=== PATIENT | male | born 1955 | race Caucasian/White ===

== ENCOUNTER 2017-01-24 19:48 | Observation (INO) | payer SELFPAY ==
[2017-01-24] MEDS ORDERED: IOPAMIDOL (ISOVUE 370) 100 ML BTL IV ONE (20:03)
--- NOTE | 2017-01-24 20:09 | EDPHY ---
H & P Stated Complaint: c/o difficulty speaking/RUE weakness starting approx 0500 today Time Seen by Provider: 01/24/17 20:05 HPI/ROS: CHIEF COMPLAINT: Hand weakness, word-finding difficulty HISTORY OF PRESENT ILLNESS: The patient is a 61 y/o male arriving in triage complaining of weakness in his right hand onset this morning and continuing word finding difficulty. He noticed the hand weakness upon waking around 05:00, about 15 hours ago. He got out of bed, noted the weakness in his hand. Walked to the BR, and fell onto a pillow upon walking back. Hand weakness resolved by the time he went back to sleep. His sister came to his home tonight and noticed his speech was abnormal and brought him to the ED. The weakness resolved , but his speech difficulty persisted. History is limited by expressive aphasia. He denies headache. Denies stroke history or alcoholism. REVIEW OF SYSTEMS: Limited by speech difficulty. - Medical/Surgical History PMH: Implanted defibrillator and MD. Left-handed. Hx Asthma: No Hx Chronic Respiratory Disease: No Hx Diabetes: No Hx Cardiac Disease: No Hx Renal Disease: No Hx Cirrhosis: No Hx Alcoholism: No Hx HIV/AIDS: No Hx Splenectomy or Spleen Trauma: No - Social History Smoking Status: Current every day smoker Additional Social History: Smoker. Sister at bedside. Lives in [place]. - Physical Exam Exam: General Appearance: Alert, no respiratory distress Eyes: Pupils equal and round, no conjunctival pallor or injection ENT, Mouth: Mucous membranes moist Neck: Normal inspection Respiratory: Lungs are clear to auscultation Cardiovascular: Regular rate and rhythm Gastrointestinal: Abdomen is soft and non- tender Neurological: Alert, expressive aphasia, able to follow most commands cranial nerves II through XII intact, motor 5/5, sensory intact to light touch Skin: Warm and dry, no rash Extremities: Nontender, no pedal edema Psychiatric: Mood and affect normal Constitutional: Initial Vital Signs Temperature (C) 36.3 C 01/24/17 19:53 Heart Rate 85 01/24/17 19:53 Respiratory Rate 18 01/24/17 19:53 Blood Pressure 161/89 H 01/24/17 19:53 O2 Sat (%) 96 01/24/17 19:53 O2 Delivery Mode Room Air Allergies/Adverse Reactions: No Known Allergies Allergy (Unverified 01/24/17 20:02) Home Medications: Medication Instructions Recorded NK [No Known Home Meds] 01/24/17 Medical Decision Making - Diagnostics EKG Interpretation: EKG interpreted by me reveals normal sinus rhythm, rate 89, PVC, incomplete right bundle branch block. Imaging Results: Imaging Impressions Chest X-Ray 01/24/17 20:01 Impression: Pacemaker. Poor inspiratory depth. Head CT 01/24/17 20:01 Impression: Normal. I telephoned results to Dr. Lynne Church at 2029 hours. Head CTA 01/24/17 20:29 Impression: 1. No arterial obstruction. 2. Chronic multilevel cervical spinal stenosis, worst at C4-C5. Note: Arterial stenoses are estimated using NASCET Criteria. I telephoned results to Dr. Lynne Church at 2104 hours. Neck CTA 01/24/17 20:29 Impression: 1. No arterial obstruction. 2. Chronic multilevel cervical spinal stenosis, worst at C4-C5. Note: Arterial stenoses are estimated using NASCET Criteria. I telephoned results to Dr. Lynne Church at [address]-A head/neck ready by Dr. Allan: normal Imaging: Discussed imaging studies w/ call manager Radiologist, I viewed and interpreted images myself ED Course/Re-evaluation: This is a 61 y/o male with cardiac disease history and AICD who presents with dysphasia of unknown onset and resolved right hand weakness. History is limited by patient's dysphasia and informed by his sister's retelling of unwitnessed events today. His neuro exam is normal apart from ongoing dysphasia. He is able to converse somewhat and seems to understand most commands. IVs established, labs drawn, patient placed on bus driver/monitor. Patient will be sent directly to CT to for noncontrast head CT to rule out acute hemorrhage. The pt's sister arrived in the room and describes the following timeline. The patient woke up around 05:00 and walked to the bathroom. He noticed his right hand felt weak. As he was walking back to his bed he fell and landed on some pillows; he denied head strike or injury from this to his sister. He went back to sleep until 11:00. Around that time he woke up and completed crosswords and watched TV without further weakness. He did not notice any speech difficulty at that time. His sister arrived at his home around 19:15, 2 hours ago, and noticed aphasia and brought him to the ED. She also explains he has an implanted defibrillator and had an MD. She does not think he is on any medication. No anticoagulants per patient's sister. 2024: Consulted with Dr. Lisa, [facility]. He agrees patient is not a TPA candidate due to unknown time of onset. If CT is negative, we will proceed with CTA of his head and neck. If large thrombosis is present, plan to reconsult with neurologist. Repeat neuro exam unchanged. 2028: Noncontrast Head CT is negative per Dr. Allan, radiology. 2103: CTAs are negative per Dr. Allan. 300mg [place] Aspirin administered. Troponin slightly elevated at 0.048. Chest x-ray negative. He denies chest pain. EKG reveals reveals no evidence of ischemia. Neuro exam unchanged. Spoke with hospitalist service. Dr. Manley accepts admission for CVA. Critical care time spent by me, Dr. Church, exclusively with this patient was 35 minutes, exclusive of PA time and exclusive of procedures. The organ system at risk was brain. Time spent in serial assessments of the patient, discussion with patient's family, consideration of TPA, neurology consultation, and review of CT scans. Differential Diagnosis: Altered mental status including but not limited to hypoglycemia, infectious process, electrolyte abnormality, head injury and intoxicants. - Data Points Laboratory Results: Laboratory Results 01/24/17 20:15 01/24/17 20:15 01/24/17 01/24/17 01/24/17 20:15 20:15 20:15 WBC 9.93 10^3/uL H 10^3/uL (3.80-9.50) RBC 5.61 10^6/uL 10^6/uL (4.40-6.38) Hgb 17.6 g/dL H g/dL (13.7-17.5) POC Hgb Hct 51.1 % H % (40.0-51.0) POC Hct MCV 91.1 fL fL (81.5-99.8) MCH 31.4 pg pg (27.9-34.1) MCHC 34.4 g/dL g/dL (32.4-36.7) RDW 13.2 % % (11.5-15.2) Plt Count 296 10^3/uL 10^3/uL (150-400) MPV 9.0 fL fL (8.7-11.7) Neut % (Auto) 68.8 % % (39.3-74.2) Lymph % (Auto) 18.7 % % (15.0-45.0) [place] % (Auto) 10.2 % % (4.5-13.0) Eos % (Auto) 1.4 % % (0.6-7.6) Baso % (Auto) 0.7 % % (0.3-1.7) Nucleat RBC Rel Count 0.0 % % (0.0-0.2) Absolute Neuts (auto) 6.83 10^3/uL H 10^3/uL (1.70-6.50) Absolute Lymphs (auto) 1.86 10^3/uL 10^3/uL (1.00-3.00) Absolute Monos (auto) 1.01 10^3/uL H 10^3/uL (0.30-0.80) Absolute Eos (auto) 0.14 10^3/uL 10^3/uL (0.03-0.40) Absolute Basos (auto) 0.07 10^3/uL 10^3/uL (0.02-0.10) Absolute Nucleated RBC 0.00 10^3/uL 10^3/uL (0-0.01) Immature Gran % 0.2 % % (0.0-1.1) Immature Gran # 0.02 10^3/uL 10^3/uL (0.00-0.10) PT 13.5 SEC SEC (12.0-15.0) INR 1.01 (0.83-1.16) APTT 29.4 SEC SEC (23.0-38.0) POC Sodium Sodium 143 mEq/L mEq/L (134-144) POC Potassium Potassium 3.9 mEq/L mEq/L (3.5-5.2) POC Chloride Chloride 102 mEq/L mEq/L (97-110) Carbon Dioxide 25 mEq/l mEq/l (22-31) Anion Gap 16 mEq/L mEq/L (8-16) POC BUN BUN 15 mg/dL mg/dL (7-23) Creatinine 1.0 mg/dL mg/dL (0.7-1.3) POC Creatinine Estimated GFR > 60 Glucose 104 mg/dL H mg/dL (70-100) POC Glucose Calcium 9.5 mg/dL mg/dL (8.5-10.4) Troponin I 0.048 ng/mL H ng/mL (0.000-0.034) 01/24/17 20:09 WBC RBC Hgb POC Hgb 18.0 gm/dL H gm/dL (13.7-17.5) Hct POC Hct 53 % H % (40-51) MCV MCH MCHC RDW Plt Count MPV Neut % (Auto) Lymph % (Auto) [place] % (Auto) Eos % (Auto) Baso % (Auto) Nucleat RBC Rel Count Absolute Neuts (auto) Absolute Lymphs (auto) Absolute Monos (auto) Absolute Eos (auto) Absolute Basos (auto) Absolute Nucleated RBC Immature Gran % Immature Gran # PT INR APTT POC Sodium 143 mEq/L mEq/L (134-144) Sodium POC Potassium 4.0 mEq/L mEq/L (3.3-5.0) Potassium POC Chloride 105 mEq/L mEq/L (97-110) Chloride Carbon Dioxide Anion Gap POC BUN 16 mg/dL mg/dL (7-23) BUN Creatinine POC Creatinine 1.0 mg/dL mg/dL (0.7-1.3) Estimated GFR Glucose POC Glucose 103 mg/dL H mg/dL (70-100) Calcium Troponin I Medications Given: Discontinued Medications Aspirin (Aspirin) 325 mg PO EDNOW ONE Stop: 01/24/17 21:05 Last Admin: 01/24/17 21:33 Dose: Not Given Aspirin (Aspirin Rectal) 300 mg WI EDNOW ONE Stop: 01/24/17 21:16 Last Admin: 01/24/17 21:26 Dose: 300 mg Point of Care Test Results: 01/24/17 20:09 POC Sodium 143 POC Potassium 4.0 POC Chloride 105 POC BUN 16 POC Creatinine 1.0 POC Glucose 103 H Departure - Departure Disposition: [facility] Inpatient Acute Clinical Impression: Expressive aphasia Stroke Qualifiers: CVA mechanism: other Qualified Code(s): I63.8 - Other cerebral infarction Condition: Fair Report Scribed for: Lynne Church Report Scribed by: Anais Pulido Date of Report: 01/24/17 Time of Report: 20:59 Physician Review and Approval Statement: 01/24/17 21:02 Portions of this note were transcribed by a medical illustrator. I personally performed a history, physical exam, medical decision making, and confirmed accuracy of information the transcribed note.
--- NOTE | 2017-01-24 20:19 | CPEKG ---
Heart Rate: 89 RR Interval: 674 P-R Interval: 200 QRSD Interval: 114 QT Interval: 404 QTC Interval: 492 P [place]: 53 QRS [place]: -2 T Wave [place]: 35 EKG Severity - ABNORMAL ECG - EKG Impression: SINUS RHYTHM EKG Impression: VENTRICULAR PREMATURE COMPLEX EKG Impression: PROBABLE LEFT ATRIAL ABNORMALITY EKG Impression: INCOMPLETE RBBB AND LAFB Electronically Signed By: Lynne Church 24-Jan-2017 22:06:41
[2017-01-24 20:20] LABS: % IMMATURE GRANULYOCYTES 0.2 % (0.0-1.1); ABSOLUTE IMMATURE GRANULOCYTES 0.02 10^3/uL (0.00-0.10); ADD DIFF? NO; ADD MORPH? NO; ADD SCAN? NO; ATYPICAL LYMPHOCYTE FLAG 10 (0-99); FRAGMENT RBC FLAG 0 (0-99); HEMATOCRIT 51.1 % (40.0-51.0); HEMOGLOBIN 17.6 g/dL (13.7-17.5); LEFT SHIFT FLG 0 (0-99); LIPEMIA HEMOLYSIS FLAG 90 (0-99); MEAN CELL HEMOGLOBIN 31.4 pg (27.9-34.1); MEAN CELL HEMOGLOBIN CONCENTR. 34.4 g/dL (32.4-36.7); MEAN CELL VOLUME 91.1 fL (81.5-99.8); PLATELET CLUMPS FLAG 0 (0-99); PLATELET COUNT 296 10^3/uL (150-400); RED BLOOD CELL COUNT 5.61 10^6/uL (4.40-6.38); RED CELL DISTRIBUTION WIDTH 13.2 % (11.5-15.2)
[2017-01-24 20:29] LABS: INR 1.01 (0.83-1.16); PROTIME(PATIENT) 13.5 SEC (12.0-15.0)
[2017-01-24 20:30] LABS: APTT 29.4 SEC (23.0-38.0)
[2017-01-24 20:38] LABS: ANION GAP 16 mEq/L (8-16); CALCIUM 9.5 mg/dL (8.5-10.4); CARBON DIOXIDE 25 mEq/l (22-31); CHLORIDE 102 mEq/L (97-110); GLOMERULAR FILTRATION RATE > 60; GLUCOSE 104 mg/dL (70-100); POTASSIUM 3.9 mEq/L (3.5-5.2); SODIUM 143 mEq/L (134-144)
[2017-01-24 20:54] LABS: TROPONIN I 0.048 ng/mL (0.000-0.034)
[2017-01-24] MEDS ORDERED: ASPIRIN 325 MG TAB PO ONE (21:04)
[2017-01-24] MEDS ORDERED: ASPIRIN RECTAL 300 MG SUPP PR ONE ×2 (21:13→21:15)
[2017-01-24] MEDS ORDERED: ONDANSETRON 4 MG/2 ML VIAL IVP PRN (22:38)
[2017-01-24] MEDS ORDERED: diphenhydrAMINE 25 MG CAP PO PRN (22:38)
[2017-01-24] MEDS ORDERED: ACETAMINOPHEN 325 MG TAB PO PRN (22:38)
[2017-01-24] MEDS ORDERED: LABETALOL HCL 5 MG/ML 20 ML MDV IVP PRN (22:41)
[2017-01-24] MEDS ORDERED: NS 1,000 ML IV SCH (22:45)
--- NOTE | 2017-01-24 23:54 | PDGENHP ---
History and Physical - Chief Complaint right arm weakness, word finding difficulties - History of Present Illness Source - patient able to provide majority of the history. Continues to have some word finding difficulties. History is also supplemented by patient sister at bedside. EMR reviewed and case discussed with accepting provider. HPI - Pleasant 61 yo M with pmhx significant for CAD 1998 with history of vtach/ vfib s/p AICD who presents to the ED this evening with complaints of aphasia and resolved right arm weakness. Patient reports he woke up approximately 0500 this AM with need to void. When he went to go sit up his right arm lay limp beside him and he had to move it with his left arm. Over the course of a few minutes patient states his right arm movement began to return. He denies any associated headache, changes in vision, numbness/tingling in other limbs or other focal weakness. Patient denies any noted facial drooping. As patient was walking out of the bathroom he reports he slipped and fell on the floor. when asked to clarify how he fell patient is unable to described but he denies any head injury or loss of consciousness. Patient states he subsequently went back to bed to sleep for a few hours and when he awoke he no longer had any right arm weakness/heaviness. Patient lives with his sister however she did not see the patient in the morning. Patient reports that he had no issues going about his day he denies any other focal deficits. He states he watched TV and had no issues understanding speech. He was able to complete a cross word puzzle approx 1pm. Patient sister returned home approximately 630 but did not see the patient upstairs until approximately 715. Patient reports he did not have any verbal interaction with anyone until his sister returned home. Patient was able to say hello and over a few minutes had increasing word finding difficulties. Patient even tried to use written communication but had similar issues with word finding and forming complete sentences. after approximately 15 minutes patient sister brought him into the ER for evaluation. No noted facial drooping or drooling. Patient denies any associated chest pain, palpitations, shortness of breath, changes in vision or other focal deficits since onset of word finding difficulties. Patient received Aspirin in the ED. CT/CTA head/neck negative for acute findings and nonocclusive vascular disease. Since arrival to the neuro floor patient and his sister reports that although aphasia persists it has improved significantly. History Information - Allergies/Home Medication List Allergies/Adverse Reactions: No Known Allergies Allergy (Unverified 01/24/17 20:02) Home Medications: NK [No Known Home Meds] 01/24/17 [Last Taken Unknown] I have personally reviewed and updated: family history, medical history, social history, surgical history - Past Medical History Additional medical history: CAD s/p PCI with stent x 2 1998. vtach/vfib s/p ICD with revisions - 1998, 2004, 2009, 2012. HLD. tobaco dependence - Surgical History Additional surgical history: cardiac cath/PCI/stents 1998. AICD with revisions 1998, 2004, 2009, 2012 - Family History Additional family history: father - cancer. mother CAD - age 54. mgf - CAD with mi 50s, CVA 70s. brother - CAD/NH age 54. aunt with history of CVA 70s - Social History Smoking Status: Current every day smoker Tobacco Use: Cigarettes (up to 1/4 ppd) Alcohol Use: None Drug Use: None Additional social history: Recently moved from [place] to [place]. Lives with sister. COR - FULL. patient desires sister Marcy or son Chintan to act as proxy. Review of Systems Review of Systems: ROS: 10pt was reviewed & negative except for what was stated in HPI & below Constitutional: Reports: no symptoms EENMT: Reports: no symptoms. Denies: blurred vision, double vision, eye pain, sore throat Cardiac: Reports: no symptoms, lightheadedness. Denies: chest pain, edema, palpitations, syncope Respiratory: Reports: no symptoms. Denies: cough, shortness of breath Gastrointestinal: Reports: no symptoms. Denies: vomitting, diarrhea, nausea Genitourinary: Reports: no symptoms. Denies: burning, dysuria, hematuria Muscolosketal: Reports: other (right arm weakness as per hpi. ). Denies: joint pain, muscle pain Skin: Reports: no symptoms. Denies: rash Neurological: Reports: weakness (right arm). Denies: anxiety, headache, tingling, tremors Physical Exam Physical Exam: Selected Entries 01/24/17 19:53 Heart Rate 85 Respiratory 18 Rate O2 Sat (%) 96 Temperature (C) 36.3 C Blood Pressure 161/89 H Mean Arterial 113 H Pressure (MAP) O2 Delivery Room Air Mode Temperature Oral Source Temp Pulse Resp BP Pulse Ox 36.3 C 76 20 132/91 H 94 01/24/17 22:16 01/24/17 22:16 01/24/17 22:16 01/24/17 22:16 01/24/17 22:16 Constitutional: no apparent distress, not in pain Eyes: PERRL, anicteric sclera, EOMI, No scleral injection Ears, Nose, Mouth, Throat: dry mucous membranes, No oral ulcer Cardiovascular: regular rate and rhythym, no murmur, rub, or gallop, No systolic murmur, No edema Peripheral Pulses: 1+: dorsalis-pedis (R), dorsalis-pedis (L) Respiratory: no respiratory distress, no rales or rhonchi, clear to auscultation Gastrointestinal: normoactive bowel sounds, soft, non-tender abdomen, no palpable masses, No tenderness Genitourinary: no bladder tenderness, No stoddard in urethra Skin: warm, normal color, No rash Musculoskeletal: full muscle strength, No joint tenderness, No muscular tenderness Neurologic: AAOx3, sensation intact bilaterally, CN II-XII Intact, No weakness, No pronator drift, No facial droop Psychiatric: interacting appropriately, not anxious, not encephalopathic, thought process linear, other (patient with some word finding difficulties but becomes occasionally frustrated when he is unable to formulate sentences and recognizes this. ) Lab Data & Imaging Review 01/25/17 04:10 01/25/17 04:10 WBC 9.93 10^3/uL (3.80-9.50) H 01/24/17 20:15 RBC 5.61 10^6/uL (4.40-6.38) 01/24/17 20:15 Hgb 17.6 g/dL (13.7-17.5) H 01/24/17 20:15 POC Hgb 18.0 gm/dL (13.7-17.5) H 01/24/17 20:09 Hct 51.1 % (40.0-51.0) H 01/24/17 20:15 POC Hct 53 % (40-51) H 01/24/17 20:09 MCV 91.1 fL (81.5-99.8) 01/24/17 20:15 MCH 31.4 pg (27.9-34.1) 01/24/17 20:15 MCHC 34.4 g/dL (32.4-36.7) 01/24/17 20:15 RDW 13.2 % (11.5-15.2) 01/24/17 20:15 Plt Count 296 10^3/uL (150-400) 01/24/17 20:15 MPV 9.0 fL (8.7-11.7) 01/24/17 20:15 Neut % (Auto) 68.8 % (39.3-74.2) 01/24/17 20:15 Lymph % (Auto) 18.7 % (15.0-45.0) 01/24/17 20:15 [place] % (Auto) 10.2 % (4.5-13.0) 01/24/17 20:15 Eos % (Auto) 1.4 % (0.6-7.6) 01/24/17 20:15 Baso % (Auto) 0.7 % (0.3-1.7) 01/24/17 20:15 Nucleat RBC Rel Count 0.0 % (0.0-0.2) 01/24/17 20:15 Absolute Neuts (auto) 6.83 10^3/uL (1.70-6.50) H 01/24/17 20:15 Absolute Lymphs (auto) 1.86 10^3/uL (1.00-3.00) 01/24/17 20:15 Absolute Monos (auto) 1.01 10^3/uL (0.30-0.80) H 01/24/17 20:15 Absolute Eos (auto) 0.14 10^3/uL (0.03-0.40) 01/24/17 20:15 Absolute Basos (auto) 0.07 10^3/uL (0.02-0.10) 01/24/17 20:15 Absolute Nucleated RBC 0.00 10^3/uL (0-0.01) 01/24/17 20:15 Immature Gran % 0.2 % (0.0-1.1) 01/24/17 20:15 Immature Gran # 0.02 10^3/uL (0.00-0.10) 01/24/17 20:15 PT 13.5 SEC (12.0-15.0) 01/24/17 20:15 INR 1.01 (0.83-1.16) 01/24/17 20:15 APTT 29.4 SEC (23.0-38.0) 01/24/17 20:15 POC Sodium 143 mEq/L (134-144) 01/24/17 20:09 Sodium 143 mEq/L (134-144) 01/24/17 20:15 POC Potassium 4.0 mEq/L (3.3-5.0) 01/24/17 20:09 Potassium 3.9 mEq/L (3.5-5.2) 01/24/17 20:15 POC Chloride 105 mEq/L (97-110) 01/24/17 20:09 Chloride 102 mEq/L (97-110) 01/24/17 20:15 Carbon Dioxide 25 mEq/l (22-31) 01/24/17 20:15 Anion Gap 16 mEq/L (8-16) 01/24/17 20:15 POC BUN 16 mg/dL (7-23) 01/24/17 20:09 BUN 15 mg/dL (7-23) 01/24/17 20:15 Creatinine 1.0 mg/dL (0.7-1.3) 01/24/17 20:15 POC Creatinine 1.0 mg/dL (0.7-1.3) 01/24/17 20:09 Estimated GFR > 60 01/24/17 20:15 Glucose 104 mg/dL (70-100) H 01/24/17 20:15 POC Glucose 103 mg/dL (70-100) H 01/24/17 20:09 Calcium 9.5 mg/dL (8.5-10.4) 01/24/17 20:15 Troponin I 0.048 ng/mL (0.000-0.034) H 01/24/17 20:15 Assessment & Plan Assessment: 61 yo M with pmx significant for CAD, HLD not currently on any therapy s/p PCI with stent x 2 and ICD for history of vtach/vfib presents with right arm weakness resolved 14 hours prior to arrival and up to 6 or 7 hours of expressive aphasia. 1. Expressive aphasia (Acute) - symptoms slightly improved with still with some word finding difficulties. stroke protocol in place. PT/OT/ST consulted as well as neurology. Will evaluate if patient ICD is compatible with MRI and order for AM if so. CT/CTA negative for acute findings or severe occlusive disease. s/ p ASA. check a1c, lipid profile. echo with bubble in AM. patient has been off treatment for some time as he reports he did not feel well on therapy for CAD. 2. Stroke (Acute) - as above. 3. right arm weakness - resolved. 4. CAD - check lipid profile. daily ASA. 5. elevated trop - minimally elevated above normal limits. denies chest pain. repeat in AM. hydrate. hx of vtach/vfib - s/p ICD. monitor on remote tele. 6. tobacco dependence - immediate cessation advised. 7. polycythemia - hydrate and repeat cbc in AM. further testing if no resolution. FEN - IVF overnight while npo. electrolyte replacement prn. diet cardiac after bedside swallow evaluation. PPX - SCDs. lovenox ppx. COR - FULL. sister Marcy or son Chintan to be proxy if needed. Dispo - admit to observation pending further evaluation and neurology recommendations. Consult entered for neurology in AM.
[2017-01-25 05:22] LABS: % IMMATURE GRANULYOCYTES 0.3 % (0.0-1.1); ABSOLUTE IMMATURE GRANULOCYTES 0.02 10^3/uL (0.00-0.10); ADD DIFF? NO; ADD MORPH? NO; ADD SCAN? NO; ATYPICAL LYMPHOCYTE FLAG 20 (0-99); FRAGMENT RBC FLAG 0 (0-99); HEMATOCRIT 46.6 % (40.0-51.0); HEMOGLOBIN 15.8 g/dL (13.7-17.5); LEFT SHIFT FLG 0 (0-99); LIPEMIA HEMOLYSIS FLAG 90 (0-99); MEAN CELL HEMOGLOBIN 30.8 pg (27.9-34.1); MEAN CELL HEMOGLOBIN CONCENTR. 33.9 g/dL (32.4-36.7); MEAN CELL VOLUME 90.8 fL (81.5-99.8); MEAN PLATELET VOLUME 9.4 fL (8.7-11.7); PLATELET CLUMPS FLAG 0 (0-99); PLATELET COUNT 251 10^3/uL (150-400); RED BLOOD CELL COUNT 5.13 10^6/uL (4.40-6.38); RED CELL DISTRIBUTION WIDTH 13.2 % (11.5-15.2)
[2017-01-25 05:27] LABS: ANION GAP 11 mEq/L (8-16); CALCIUM 8.6 mg/dL (8.5-10.4); CARBON DIOXIDE 23 mEq/l (22-31); CHLORIDE 107 mEq/L (97-110); CHOLESTEROL 161 mg/dL (140-220); CHOLESTEROL/HDL RATIO 5.55 RATIO (1.00-4.97); CREATININE 0.8 mg/dL (0.7-1.3); GLOMERULAR FILTRATION RATE > 60; GLUCOSE 78 mg/dL (70-100); HIGH DENSITY LIPOPROTEIN 29 mg/dL (40-65); LDL/HDL RATIO 3.62 RATIO (1.00-3.64); LOW DENSITY LIPOPROTEIN 105 mg/dL (80-100); NON-HIGH DENSITY LIPOPROTEIN 132 mg/dL (90-129); POTASSIUM 3.9 mEq/L (3.5-5.2); SODIUM 141 mEq/L (134-144); TRIGLYCERIDE 137 mg/dL (40-150); VERY LOW DENSITY LIPOPROTEINS 27 mg/dL (8-25)
[2017-01-25 05:35] LABS: TROPONIN I 0.055 ng/mL (0.000-0.034)
[2017-01-25] MEDS ORDERED: ENOXAPARIN 40 MG/0.4 ML SYR SC SCH (09:00)
[2017-01-25] MEDS ORDERED: ASPIRIN 81 MG CHEWABLE TAB PO SCH (09:00)
--- NOTE | 2017-01-25 10:03 | ECHO ---
[email or web address] [address] [address] Main: [phone] Fax: Transthoracic Echocardiogram Name: FLORIN LOPEZ MR#: [id number] Study Date: 01/25/2017 Study Time: 08:49 AM Date of : 1955 Age: 61 year(s) Height: 185.4 cm (73 in.) Weight: 97.52 kg (215 lb.) BSA: 2.22 m2 Gender: Male Examination: Echo Indication: Ischemic Stroke, ICD and Stents 1998 Image Quality: Contrast: Requested by: Elvira Khan BP: 124 mmHg/79 mmHg Heart Rate: Rhythm: Normal sinus rhythm with ectopy Indication: Ischemic Stroke, ICD and Stents 1998 Procedure Staff Mechanical Fitter: Gregory Rankin Reading Physician: Salvador Haney Requesting Provider: Conclusions: No pericardial effusion. Moderate reduction in ejection fraction. Evidence of prior inferior wall myocardial infarction. ICD in the right ventricle. Evidence of right to left shunting by bubble study. Aortic valve calcification without significant stenosis. Measurements: Chambers Valvular Assessment AV/MV Valvular Assessment TV/PV Normal Normal Normal Name Value Range Name Value Range Name Value Range Ao Liudmila (MM): 4.0 cm (2.2 cm-3.7 AV Vmax: 1.40 m/s (1 m/s-1.7 PV Vmax: 1.18 m/s (0.6 m/s-0.9 cm) m/s) m/s) IVSd (2D): 1.1 cm (0.6 cm-1.1 AV maxP mmHg ( - ) PV PGmax: 6 mmHg ( - ) cm) LVOT Vmax: 0.67 m/s (0.7 m/s-1.1 LVDd (2D): 6.5 cm (4.2 cm-5.9 m/s) cm) MV E Vmax: 0.60 m/s ( - ) LVDs (2D): 5.2 cm (2.1 cm-4 MV A Vmax: 1.05 m/s ( - ) cm) MV E/A: 0.57 ( - ) LVPWd (2D): 1.1 cm (0.6 cm-1 cm) LVEF (BP): 37 % (>=55 %) Continued Measurements: Chambers Valvular Assessment AV/MV Name Value Name Value LADs Lon.7 cm MV E' Septal: 0.03 m/s LA Area: 20.4 cm2 MV E/E' Septal: 19.30 LA Volume: 71 ml MV E/E' Lateral: 13.70 LA Volume Index: 32.0 ml/m2 Patient: FLORIN LOPEZ Study Date: 01/25/2017 Page 1 of 2 08:49 AM Findings: Left Ventricle: Mildly dilated left ventricle. Moderately reduced systolic LV function. EF is 37 %. There is basial to mid inferolateral hypokinesis. There is basilar to mid inferior hypokinesis.. Right Ventricle: Normal size right ventricle. Normal RV function. There is an ICD lead noted in the right ventricle. Left Atrium: The left atrium is normal in size. An agitated saline study was performed and was positive for intracardiac shunting. Right Atrium: The right atrium is normal in size. Mitral Valve: The mitral valve is normal in appearance. Trivial to mild mitral regurgitation. Aortic Valve: The aortic valve is tri-leaflet. Mild aortic cusp calcification is noted. No aortic valve stenosis is present. Tricuspid Valve: The tricuspid valve is normal in appearance and function. Pulmonic Valve: The pulmonic valve is normal in appearance and function. Aorta: The aorta is normal. Pericardium: No pericardial effusion. Exam Comments: .. (No Signature Object) Patient: FLORIN LOPEZ Study Date: 01/25/2017 Page 2 of 2 08:49 AM [id number]
[2017-01-25] MEDS ORDERED: ATORVASTATIN CALCIUM 40 MG TAB PO SCH (10:15)
[2017-01-25] MEDS ORDERED: NS 1,000 ML IV ONE (11:19)
--- NOTE | 2017-01-25 11:19 | PDHPUP ---
History & Physical Update H&P update statement: This history and physical update is based on an assessment of the patient which was completed after admission or registration (within 24 hours), but prior to the surgery/procedure. H&P update: H&P reviewed & patient examined, no change in patient's condition since H&P completed
--- NOTE | 2017-01-25 12:35 | ASMTCMCOM ---
CM Note CM Note Notes: Reviewed chart and discussed w/RN. Pt lives at home w/sister. Aphasia and other symptoms improving, will have ELSY today. No dc needs anticipated at this time. CM will follow for any changes/needs. Date Signed: 01/25/2017 12:34 PM Electronically Signed By:Winsome Eric RN
[2017-01-25 12:38] LABS: HEMOGLOBIN A1C 5.9 % (4.0-6.0)
--- NOTE | 2017-01-25 13:39 | PDANEPAE ---
ANE History of Present Illness 61 yo for samuel s/p cva ANE Past Medical History - Cardiovascular History Hx Hypertension: Yes Hx Arrhythmias: Yes Hx Chest Pain: Yes Hx Coronary Artery / Peripheral Vascular Disease: Yes - Pulmonary History Hx Oxygen in Use at Home: No Hx Sleep Apnea: No - Endocrine History Hx Diabetes: No - Chronic Pain History Chronic Pain: No ANE Review of Systems Review of Systems: - Exercise capacity METS (RN): 4 METS ANE Patient History - Allergies Allergies/Adverse Reactions: No Known Allergies Allergy (Unverified 01/24/17 20:02) - Home Medications Home medications: home medication list seen and reviewed Home Medications: NK [No Known Home Meds] 01/24/17 [Last Taken Unknown] - NPO status NPO Status: no food or drink >8 hours - Anes Hx Anes Hx: no prior problems - Smoking Hx Smoking Status: Current every day smoker - Alcohol Use Alcohol Use: None ANE Labs/Vital Signs - Labs Result Diagrams: 01/25/17 04:10 01/25/17 04:10 - Vital Signs Blood Pressure: 124/79 Heart Rate: 71 Respiratory Rate: 18 O2 Sat (%): 93 Height: 6 ft 0.61 in Weight: 93.8 kg ANE Physical Exam - Airway Neck exam: FROM Mallampati Score: Class 2 Mouth exam: normal dental/mouth exam - Pulmonary Pulmonary: no respiratory distress - Cardiovascular Cardiovascular: regular rate and rhythym - ASA Status ASA Status: III ANE Anesthesia Plan Anesthesia Plan: MAC
--- NOTE | 2017-01-25 14:00 | GCON ---
[f rep st] CONSULTATION REFERRING PHYSICIAN: Jessenia Manley MD HISTORY OF PRESENT ILLNESS: The patient is a 61-year-old gentleman whom I am asked to see in neurolo gi consultation with a chief complaint of trouble speaking. The history is obtained from review of the medical records, as well as in discussion with the patient who is a good historian, despite him h aving a very mild expressive language difficulty. He was doing well after having recently moved to [facility] from [place], when he awoke yesterday and noticed he was having trouble using his right arm . Over the course of a few hours, including going back to sleep, he had gradual improvement. At one point he wound up on the floor and was resting there for a little while, it sounds like. He was not trying to speak to anybody, so he really was not initially aware of a language disturbance. In fact , he was able to get dressed and do activities outside and it was not until the evening did he recogn ize when he was trying to speak that it was not right. He says he was also trying to specifically wr ite and had trouble doing that as well. That is when his sister had him come to the hospital for acu te evaluation. He was seen in the emergency department by Dr. Church. She consulted with Jed chavez, and he was not felt to be a candidate for t-PA because of the time frame and the very mild de ficit at the time. He underwent CT of the head that was unremarkable and then had a CT angiogram of the head and neck, which did not reveal any significant stenoses. He was subsequently admitted by Dr. Elvira Khan. The patient had not been taking regular aspirin. He did have aspirin in the past, as well as Plavix when he had coronary disease some 18 years ago and had ventricular tachycardia and has an AICD. However, he was only using aspirin for pain and not fo r any secondary prophylaxis of coronary disease. He says that this had been last changed in 2011, he believes with previous battery changes as well and does not have any current cardiac complaints. PAST MEDICAL HISTORY: As noted above with reports of ventricular tachycardia, ventricular fibrillati on, and a pacemaker, AICD, and prior stenting. He does smoke. FAMILY HISTORY: Cancer. There is a family history of stroke as well. SOCIAL HISTORY: He has about a quarter pack of cigarettes per day. No alcohol. He moved to [facility] a few months ago. He was in the [place] area. He is living with a sister. ALLERGIES: No known drug allergies. MEDICATIONS: He was not taking any home medication. He thinks he took statins in the past, but got off those as well and also previously had been on Niaspan. REVIEW OF SYSTEMS: Negative for fever, chills, nausea, vomiting, or diarrhea. No headaches. PHYSICAL EXAMINATION: VITAL SIGNS: Blood pressure 124/79, pulse of 71, respirations 18, temperature 36.9. GENERAL: He is well developed in no acute distress. EYES: Clear. NECK: Supple. No bruit s or masses. CARDIAC: Regular rate and rhythm. No murmur. NEUROLOGIC: He is alert and attentive, but has a mild expressive language difficulty. He is able to communicate effectively, however. Pup ils are 3 mm and reactive. No visual field loss. Extraocular movements are intact. Normal facial s ensation and strength. Palate elevates symmetrically. Tongue protrudes in the midline. Hearing is preserved. No weakness of head turning or shoulder shrug. Motor exam reveals normal muscle bulk and tone with 5/5 strength and no abnormal movements. Sensation is preserved for temperature and light touch. No ataxia on [id number]. His NIH Stroke Scale is 1 with mild expressive aphasia. ASSESSMENT AND PLAN: The patient has experienced a probable acute ischemic stroke starting yesterday morning and still has a very mild expressive aphasia. I do not think a repeat head CT is necessary to confirm the small stroke because it is so clinically evident that that is likely what has occurred . He is not a candidate for MRI because of his pacemaker device. He needs to be on antiplatelet the rapy, so we will continue daily aspirin. I am recommending he go on a statin for secondary stroke pr ophylaxis, and he agrees to that. He has had an echocardiogram obtained this morning. That study sh ows a moderate reduction in ejection fraction with some prior inferior wall abnormality consistent wi th old infarct. There is evidence of a [id number]-eqti shunt on the bubble study, and there are some a ortic valve calcifications without significant stenosis. The ejection fraction is about 37%. This w as read by Dr. Haney. The patient has also been evaluated with Dr. Megha Hickman. However, there is no detailed cardiology consultation I can ascertain so far. In reviewing the case management notes, there is a plan for him to have a ELSY later today. I am sure this was initiated through the cardiac consultation, and they will continue to be involved, and we need their input for guidance on appropr iate management of the significant cardiac disease that he does have. He also needs to establish wit h a primary care provider for general medical issues. He should follow up with me as an outpatient. Consideration will need to be given for possible closure of a PFO if appropriate. /[id number]/MODL
--- NOTE | 2017-01-25 14:12 | CPEKG ---
Heart Rate: 74 RR Interval: 811 P-R Interval: 208 QRSD Interval: 120 QT Interval: 448 QTC Interval: 497 P Cleveland: 56 QRS Cleveland: -51 T Wave Cleveland: 22 EKG Severity - ABNORMAL ECG - EKG Impression: SINUS RHYTHM EKG Impression: PROBABLE LEFT ATRIAL ABNORMALITY EKG Impression: NONSPECIFIC IVCD WITH LAD Electronically Signed By: Adelso Frias 26-Jan-2017 13:24:22
--- NOTE | 2017-01-25 14:14 | POSTANESTH ---
Post Anesthetic Evaluation Cardiovascular Status: Normal, Stable Respiratory Status: Similar to Pre-op Cond. Level of Consciousness/Mental Status: Can Participate in Eval Pain Control: Adequate, Prn Tx Ordered Nausea/Vomiting Control: Adequate, Prn Tx Ordered Complications Possibly Related to Anesthesia: None Noted
--- NOTE | 2017-01-25 14:29 | GCON ---
[f rep st] CONSULTATION DATE OF CONSULTATION: 01/25/2017 CHIEF COMPLAINT: Stroke and history of coronary disease and myocardial infarction. HISTORY OF PRESENT ILLNESS: We were asked by Dr. Olguin to visit with Mr. Mariano. The patient is a very pleasant 61-year-old male with a history of myocardial infarction in 1998. He received 2 stents for this. This was in [place], and he does not know which vessel or vessels were intervened upon. He did require additional stenting a few years later. He also has a [employer] defibrillato r for ventricular tachycardia seen on a treadmill test. Other history includes cardiomyopathy, ongoi ng tobacco use, and dyslipidemia. The patient recently moved from [place] to [place] to be with his sister, whom he lives with. He h as been off all of his medications. Yesterday morning, he woke up at 5:00 a.m., and noticed that he had no function of his right hand. He did not feel well. He went to the bathroom and got dressed. He then tried to go back to bed and fell onto his bed. About an hour later, he had regained function of his right hand. He had a fairly normal day after that. When his sister got home from work, they both noticed that he was unable to speak clearly. Therefore, he was brought to the hospital. He was out of the window for t-PA. Head CT was negative for acute process. [facility]. Over the course of the night and this morning, his dysphagia has impr eusebio dramatically. However, he still has a little bit of word-finding difficulty. He has regained f unction of his right hand, and he has not had any other focal neurologic deficits. Throughout all this he denies any cardiovascular symptoms. No chest pain, dyspnea, or palpitations. No presyncope or syncope. No lower extremity edema. He is fairly active doing yard work and has no t had any angina with this. REVIEW OF SYSTEMS: A full 10-point review of systems is performed and is negative except that which is outlined in his history of present illness. ALLERGIES: No known drug allergies. PAST MEDICAL HISTORY: 1. Acute stroke. 2. Coronary artery disease, status post myocardial infarction MD in 1998. This is presumably in eit her the right coronary or the left circumflex distribution, based on his echocardiogram. This was tr eated with stenting and a few years later he had repeat stenting. 3. [employer] ICD for VT. 4. Cardiomyopathy with ejection fraction 35% to 40%. 5. Ongoing tobacco abuse. 6. Dyslipidemia. OUTPATIENT MEDICATIONS: None. SOCIAL HISTORY: The patient is currently not working. He lives with his sister. He does smoke ciga rettes. He denies alcohol. FAMILY HISTORY: Notable for premature coronary disease. PHYSICAL EXAMINATION: VITAL SIGNS: Blood pressure 124/79, heart rate 71, oxygen saturation 91% on 5 L nasal cannula. Respiratory rate is 18 beats per minute. Telemetry is normal sinus rhythm. GENER AL: Well-appearing middle-aged male in no acute distress. HEENT: Sclerae are clear and free of jau ndice. Mucous members are moist. CARDIOVASCULAR: Carotids are equal and 2+ without bruits. JVP is less than 10. Regular rate and rhythm without murmur or gallop. LUNGS: Clear to auscultation with out wheeze or rales. ABDOMEN: Soft, nontender, nondistended without bruits, masses, or hepatospleno megaly. EXTREMITIES: Warm without cyanosis, clubbing, or edema. NEUROLOGIC: He is alert and orien farrah x3. He has very subtle word-finding difficulty, but no other gross focal neurological deficit ec ho for very subtle word-finding difficulty. PSYCHIATRIC: Appropriate mood and affect. LABORATORY DATA: White count 7.86, hematocrit 46.6, platelets 251. Coagulation parameters are withi n normal limits. Basic metabolic panel is normal. Troponin 0.048 and 0.055. LDL cholesterol is 105 . TSH is normal. Hemoglobin A1c is pending. Chest x-ray reviewed by me: Pacemaker in place. There is no pneumonia or edema. EKG: I am unable to view this tracing at this time. Head CT and head and neck CTA show minimal plaquing in both carotid bulbs, but no acute process. No significant stenoses. Echocardiogram: Moderately depressed left ventricular ejection fraction of approximately 35%. Infer olateral and inferior hypokinesis. ICD lead noted in the right heart. Minimal bubbles cross right t o the left with agitated saline injection. Mild mitral regurgitation. ASSESSMENT AND PLAN: A 61-year-old male with cardiovascular history including remote myocardial infa rction, cardiomyopathy, VT with ICD, dyslipidemia, ongoing tobacco abuse. He now presents with acute stroke manifested by right hand weakness and dysarthria. This has improved. He is being seen by [facility]. No obvious etiology of his stroke at this time, but I would be concerned about cardioemboli c source. 1. Stroke: I agree with statin and aspirin. We will perform ELSY today. I doubt that his small pat ent foramen ovale is the etiology of his stroke. We will have [employer] interrogate his shun ce to see if he has had any arrhythmias. It does appear on chest x-ray that he has an atrial lead, s o hopefully we will be able to see if he has had any paroxysmal atrial fibrillation. 2. Minimally positive troponin: This may be demand ischemia in the setting of physiological stress from his stroke. He is not having chest pain. I would absolutely recommend further risk stratificat ion as an outpatient with nuclear stress testing. This can be arranged through our office in the yo r future. Continue aspirin and statin. 3. Cardiomyopathy: He is not in heart failure. We will initiate beta-regino and KELSI inhibitor. 4. Dyslipidemia: Restart statin. 5. Tobacco abuse: The patient is strongly encouraged to quit smoking. Thank for allowing us to participate in Mr. Mariano's care. We will follow with you, and more recomm endations will follow after his ELSY. /[id number]/MODL
--- NOTE | 2017-01-25 14:49 | ECHO ---
[email or web address] [address] [address] Main: [phone] Fax: Transesophageal Echocardiography Name: FLORIN LOPEZ MR#: [id number] Study Date: 01/25/2017 Study Time: 01:43 PM Date of : 1955 Age: 61 year(s) Height: ( ) Weight: ( ) BSA: Gender: Male Examination: ELSY Indication: Cerebrovascular: prior CVA Image Quality: Contrast: Requested by: Megha Hickman Heart Rate: Rhythm: BP: / Procedure Staff Project Control Officer: Gregory Rankin Reading Physician: Megha Hickman Requesting Provider: Mushtaq Gaines ELSY Exam Details Patient Consent: Risks, alternatives of procedure explained to patient, informed consent obtained. Exam Location: Echo lab Patient Fasting: yes Conclusions: The ejection fraction is estimated to be 35-40 %. No thrombus in left ventricle. There is an ICD lead noted in the right ventricle. An agitated saline study was performed and was positive for intracardiac shunting. A small PFO is noted. No thrombus in left appendage. No cardiac source of embolism identified Measurements: Chambers Valvular Assessment AV/MV Valvular Assessment TV/PV Normal Normal Normal Name Value Range Name Value Range Name Value Range EF Range: 35-40 % Additional Measurements: Findings: Left Ventricle: The ejection fraction is estimated to be 35-40 %. No thrombus in left ventricle. Patient: FLORIN LOPEZ Study Date: 01/25/2017 Page 1 of 2 01:43 PM Right Ventricle: There is an ICD lead noted in the right ventricle. Left Atrium: An agitated saline study was performed and was positive for intracardiac shunting. A small PFO is noted. Left Atrial Appendage: Good color flow doppler in the left atrial appendage. Normal PW-Doppler flow pattern. No thrombus in left appendage. Right Atrium: The right atrium is normal in size. Mitral Valve: The mitral valve is normal in appearance and function. Aortic Valve: The aortic valve is tri-leaflet. No aortic valve sclerosis is noted. Tricuspid Valve: The tricuspid valve is normal in appearance and function. Pulmonic Valve: The pulmonic valve is normal in appearance and function. Aorta: The aorta is normal. Pericardium: No pericardial effusion. l1n (No Signature Object) Patient: FLORIN LOPEZ Study Date: 01/25/2017 Page 2 of 2 01:43 PM [id number]
[2017-01-25 16:04] VITALS: RESP 16; TEMP 98.6; O2SAT 91
--- NOTE | 2017-01-25 16:42 | ASMTCMCOM ---
CM Note CM Note Notes: Pt medically stable for d/c, Dr. Olguin wrote script for outpatient OT/PT/DEPUTY SHERIFF/INVESTIGATOR. Pt has no insurance at this time, will be screened for Medicaid by [employer]. [facility] 01[facility]29[facility]17 at 09:20. Pt provided with [facility] outpatient therapy phone number to follow up when has a payer source. Pt has a ride home from his sister. No other needs identified. Date Signed: 01/25/2017 04:42 PM Electronically Signed By:AIMEE Naranjo
[2017-01-25 17:56] VITALS: BP 128/75; PULSE 75
[2017-01-25] MEDS ORDERED: CARVEDILOL 3.125 MG TAB PO SCH (18:00)
--- NOTE | 2017-01-25 19:16 | GDS ---
[f rep st] DISCHARGE SUMMARY DISCHARGE DIAGNOSES: 1. Acute stroke with expressive aphasia. 2. History of ventricular tachycardia arrest, status post AICD. 3. Chronic systolic congestive heart failure. Ejection fraction 35%. 4. Coronary artery disease, status post previous stent. 5. Tobacco dependence. HISTORY: The patient is a 61-year-old male with a history of ND receiving 2 stents in 1998, as well as additional stents at a later date. He developed ventricular tachycardia while on a treadmill test and did get an AICD. He recently moved here from [place], but prior to moving, had not had his AI CD checked since 2012 and was off all medications. He presented to the hospital with right upper ext remity weakness and expressive aphasia. His symptoms did improve after discharge. He presented outside the window for tPA. We were unable t o do an MRI to confirm stroke due to his AICD; however, clinically was classic stroke presentation, s o we feel the diagnosis is confirmed. He was started on an aspirin and a statin drug. He was seen b y physical, occupational, and speech therapy and cleared for outpatient therapies. He has poor followup regarding his cardiovascular disease, so he was seen by Cardiology. His device was interrogated, and there was no evidence of AFib. Battery was okay despite lack of checking since 2012. His EF was only 37%, but that is felt to be chronic. He was restarted on a low-dose KELSI inhi bitor and beta regino. He had a slight troponin elevation, which was felt to be due to strain from his stroke and outpatient stress testing was recommended. He underwent a ELSY that was also unremarka ble for embolic source of stroke. He has a small PFO; however, cardiology does not feel this is cont ributing. DISCHARGE MEDICATIONS: Please see computerized record for full detailed list. New medications: 1. Aspirin 81 mg p.o. daily. 2. Lipitor 40 mg p.o. daily. 3. Coreg 3.125 mg p.o. b.i.d. 4. Lisinopril 2.5 mg p.o. daily. ADDITIONAL DISCHARGE INSTRUCTIONS: 1. Establish primary care. The patient is currently uninsured, and an appointment was made for him this upcoming Saturday at [facility]. 2. Outpatient PT, OT, and speech therapy can be started once a payor source is established. 3. Smoking cessation advised. 4. Follow up with Dr. Megha Hickman in a couple weeks. 5. Follow up with Dr. Mushtaq Gaines of Neurology in a couple weeks. Greater than 30 minutes' time was spent arranging this discharge. Patient was seen and examined by bisi gonzalez on the day of discharge. /[id number]/MODL
[2017-01-26] MEDS ORDERED: LISINOPRIL 5 MG TAB PO SCH (09:00)
== END 2017-01-25 18:12 | disposition home or self-care (01) ==
LOC: INTOOBSV 21:44 → F3N 22:25
PROVIDERS: ADMIT Hospitalist; ATTEND Hospitalist
DX: I69.320 Aphasia following cerebral infarction (principal); I50.22 Chronic systolic (congestive) heart failure; I25.10 Atherosclerotic heart disease of native coronary artery without angina pectoris; F17.200 Nicotine dependence, unspecified, uncomplicated; Z95.0 Presence of cardiac pacemaker
CPT/HCPCS: 82947-QW; 92610-GN; 97161-GP; G0378; J1650; Q9967

== ENCOUNTER 2017-11-22 11:06 | Observation (INO) | payer MEDICAID ==
[2017-11-22] MEDS ORDERED: fentaNYL 100 MCG/2 ML INJ IVP ONE (12:13)
[2017-11-22] MEDS ORDERED: ONDANSETRON 4 MG/2 ML VIAL IVP ONE (12:13)
--- NOTE | 2017-11-22 12:13 | EDPHY ---
H & P Time Seen by Provider: 11/22/17 11:40 HPI/ROS: CHIEF COMPLAINT: Abdominal pain HISTORY OF PRESENT ILLNESS: Patient is a 62-year-old male with a history of bleeding gastric ulcer that presents emergency department with mid abdominal discomfort x3 days. The patient describes a stabbing abdominal pain. It is sharp. It improves when he sleeps but recurs immediately upon waking. It does not radiate to his back. He has had no dysuria, frequency or hematuria. No change in his bowel habits. No diarrhea. No bloody stool. No fevers. Patient feels mildly chilled. REVIEW OF SYSTEMS: 10 systems were reveiwed and are negative with the exception of the elements mentioned in the history of present illness. Past Medical/Surgical History: Coronary artery disease, bleeding gastric ulcer Past surgical history: No abdominal surgery. Defibrillator placement Smoking Status: Current every day smoker Physical Exam: Vitals noted GENERAL: Well-appearing, in no acute distress, alert. HEENT: Eyes normal to inspection, normal pharynx, no signs of dehydration. NECK: Normal, supple. RESPIRATORY: Clear to auscultation bilaterally, no rales, rhonchi or wheezing. CVS: Regular rate and rhythm, no rubs, murmurs, or gallops. ABDOMEN: Soft, nontender, nondistended, no organomegaly. Benign on exam. BACK: Normal to inspection, no CVA tenderness. SKIN: Normal color, no rash, warm, dry. No pallor. EXTREMITIES: No pedal edema, no calf tenderness, no Homans sign or cords, no joint swelling. NEURO/PSYCH: Alert and oriented, normal mood and affect, normal motor sensory exam. No obvious cranial nerve deficit. Constitutional: Initial Vital Signs Temperature (C) 37.0 C 11/22/17 11:13 Heart Rate 72 11/22/17 11:13 Respiratory Rate 18 11/22/17 11:13 Blood Pressure 137/83 H 11/22/17 11:13 O2 Sat (%) 98 11/22/17 11:13 O2 Delivery Mode Room Air Allergies/Adverse Reactions: No Known Allergies Allergy (Verified 11/22/17 11:12) Home Medications: Medication Instructions Recorded NK [No Known Home Meds] 11/22/17 Medical Decision Making - Diagnostics Imaging Results: Imaging Impressions Abdomen CT 11/22/17 14:06 Impression: 1. Left adrenal mass measuring 2.5 x 2.5 cm. Hyperplasia of the right adrenal. 2. Numerous hypodense lesions in the liver, the majority of which are cysts. Given these findings, would consider MRI evaluation. Findings and recommendations discussed with AURORA DURAN at 1449 hour, . A test result has been communicated to a licensed care provider and documented in the [employer] Critical Result system on 11/22/2017 14:49, Message ID [id number]. ED Course/Re-evaluation: In the emergency department I discussed possible etiologies with the patient. I answered all his questions. IV was placed. Laboratory studies and CT were ordered. The patient was given fentanyl 50 mcg IV and Zofran 4 mg IV. CBC shows a mildly elevated white count of 11. Chemistry unremarkable. Abdomen and pelvis CT: Please refer the dictated report. Patient has a noted adrenal mass. MRI imaging may be helpful for further evaluation. I discussed the result with the patient. I answered all his questions. Patient will be admitted for further evaluation. I discussed case with Dr. Olguin. She accepted the patient. Differential Diagnosis: My differential includes but is not limited to small-bowel obstruction, perforation, peptic ulcer disease, intussusception, volvulus, kidney stone, urinary tract infection, pyelonephritis - Data Points Laboratory Results: Laboratory Results 11/22/17 12:15 11/22/17 12:15 11/22/17 11/22/17 11/22/17 12:15 12:15 12:15 WBC 11.16 10^3/uL H 10^3/uL (3.80-9.50) RBC 5.51 10^6/uL 10^6/uL (4.40-6.38) Hgb 17.1 g/dL g/dL (13.7-17.5) Hct 49.7 % % (40.0-51.0) MCV 90.2 fL fL (81.5-99.8) MCH 31.0 pg pg (27.9-34.1) MCHC 34.4 g/dL g/dL (32.4-36.7) RDW 13.6 % % (11.5-15.2) Plt Count 266 10^3/uL 10^3/uL (150-400) MPV 9.6 fL fL (8.7-11.7) Neut % (Auto) 78.1 % H % (39.3-74.2) Lymph % (Auto) 12.0 % L % (15.0-45.0) [place] % (Auto) 9.1 % % (4.5-13.0) Eos % (Auto) 0.1 % L % (0.6-7.6) Baso % (Auto) 0.3 % % (0.3-1.7) Nucleat RBC Rel Count 0.0 % % (0.0-0.2) Absolute Neuts (auto) 8.72 10^3/uL H 10^3/uL (1.70-6.50) Absolute Lymphs (auto) 1.34 10^3/uL 10^3/uL (1.00-3.00) Absolute Monos (auto) 1.02 10^3/uL H 10^3/uL (0.30-0.80) Absolute Eos (auto) 0.01 10^3/uL L 10^3/uL (0.03-0.40) Absolute Basos (auto) 0.03 10^3/uL 10^3/uL (0.02-0.10) Absolute Nucleated RBC 0.00 10^3/uL 10^3/uL (0-0.01) Immature Gran % 0.4 % % (0.0-1.1) Immature Gran # 0.04 10^3/uL 10^3/uL (0.00-0.10) Sodium 140 mEq/L mEq/L (135-145) Potassium 4.9 mEq/L mEq/L (3.3-5.0) Chloride 103 mEq/L mEq/L (97-110) Carbon Dioxide 25 mEq/l mEq/l (22-31) Anion Gap 12 mEq/L mEq/L (8-16) BUN 14 mg/dL mg/dL (7-23) Creatinine 0.7 mg/dL mg/dL (0.7-1.3) Estimated GFR > 60 Glucose 121 mg/dL H mg/dL (70-100) Calcium 9.6 mg/dL mg/dL (8.5-10.4) Total Bilirubin 0.9 mg/dL mg/dL (0.1-1.4) Conjugated Bilirubin 0.2 mg/dL mg/dL (0.0-0.5) Unconjugated Bilirubin 0.7 mg/dL mg/dL (0.0-1.1) AST 20 IU/L IU/L (17-59) ALT 17 IU/L L IU/L (21-72) Alkaline Phosphatase 67 IU/L IU/L (38-126) Total Protein 7.1 g/dL g/dL (6.3-8.2) Albumin 4.3 g/dL g/dL (3.5-5.0) Lipase 95 IU/L IU/L (23-300) Urine Color YELLOW Urine Appearance CLEAR Urine pH 6.0 (5.0-7.5) Ur Specific [place] 1.026 (1.002-1.030) Urine Protein 1+ H (NEGATIVE) Urine Ketones 1+ H (NEGATIVE) Urine Blood NEGATIVE (NEGATIVE) Urine Nitrate NEGATIVE (NEGATIVE) Urine Bilirubin NEGATIVE (NEGATIVE) Urine Urobilinogen 2.0 EU H EU (0.2-1.0) Ur Leukocyte Esterase NEGATIVE (NEGATIVE) Urine RBC NONE SEEN /hpf /hpf (0-3) Urine WBC 1-3 /hpf /hpf (0-3) Ur Epithelial Cells TRACE /lpf /lpf (NONE-1+) Hyaline Casts 1-5 /lpf /lpf (0-1) Urine Mucus 4+ /lpf H /lpf (NONE-1+) Urine Glucose NEGATIVE (NEGATIVE) Medications Given: Discontinued Medications Fentanyl (Sublimaze) 50 mcg IVP EDNOW ONE Stop: 11/22/17 12:14 Last Admin: 11/22/17 12:30 Dose: 50 mcg Ondansetron HCl (Zofran) 4 mg IVP EDNOW ONE Stop: 11/22/17 12:14 Last Admin: 11/22/17 12:34 Dose: 4 mg Departure - Departure Disposition: [facility] Acute Clinical Impression: Abdominal pain Qualifiers: Abdominal location: periumbilical Qualified Code(s): R10.33 - Periumbilical pain Condition: Good Instructions: Abdominal Pain (ED) Referrals: Nayely Porter MD [[facility] [place] Primary Care Provider] - 5-7 days, call for appt.
[2017-11-22 12:28] LABS: PLATELET COUNT 266 10^3/uL (150-400)
[2017-11-22] MEDS ORDERED: IOPAMIDOL (ISOVUE-300) 100 ML BTL ONE (14:11)
[2017-11-22] MEDS ORDERED: HYDROmorphONE/DILAUDID 1 MG/ML INJ IVP PRN (16:27)
[2017-11-22] MEDS ORDERED: ACETAMINOPHEN 325 MG TAB PO PRN (16:34)
[2017-11-22] MEDS ORDERED: ONDANSETRON 4 MG/2 ML VIAL IVP PRN (16:34)
[2017-11-22] MEDS ORDERED: oxyCODONE IR 5 MG TAB PO PRN (16:34)
[2017-11-22] MEDS ORDERED: PROMETHAZINE HCL 25 MG/ML INJ IVP PRN (16:34)
[2017-11-22] MEDS: PANTOPRAZOLE SODIUM 40 MG VIAL IVP SCH (16:43)
[2017-11-22] MEDS ORDERED: NS 1,000 ML IV SCH (16:45)
--- NOTE | 2017-11-22 17:50 | GHP ---
DATE OF ADMISSION: 11/22/2017 CHIEF COMPLAINT: Epigastric pain. HISTORY: This is a 62-year-old male, who complains of severe epigastric abdominal pain for the last 3 days. It has been constant, very severe, without radiation to his back. He has a history of simil ar pains in the past. For an episode he had 9 months ago he took a 2 week course of Prilosec and the pain resolved and has not come back until now. When he previously lived in [place], he was diagn osed with H pylori and was prescribed antibiotics, but he was in the process of moving to [place] an d never took the antibiotics. He also describes a history of upper GI bleed 5 years ago when he deve loped melena. He went to urgent care. They gave him some medication and melena went away and he nev er had an EGD. His father of gastric cancer. He tried to take his usual proton pump inhibitor when his pain started but is not relieving it, as it has in the past. Denies any nausea, vomiting or weight loss. It sounds like he never goes to the doctor. PAST MEDICAL HISTORY: 1. Ventricular tachycardia arrest status post automated implantable cardioverter-defibrillator. 2. Congestive heart failure. Ejection fraction 35%. 3. Coronary artery disease, status post previous stent. 4. History of stroke. MEDICATIONS: Please see computer record for full detailed list. ALLERGIES: No known drug allergies. SOCIAL HISTORY: Smokes a quarter of a pack per day. No alcohol. Lives with his sister. REVIEW OF SYSTEMS: Complete review of systems obtained. Review of systems negative regarding consti tutional, HEENT, GI, pulmonary, cardiovascular, , hematology, skin, muscular, endocrine, psych exce pt for positives and negatives as in HPI. FAMILY HISTORY: Father of stomach cancer. PHYSICAL EXAMINATION: GENERAL: Well-developed, well-nourished male, in no acute distress. VITAL SI GNS: Temperature is 36.6, pulse 69, blood pressure 139/82, saturating 93% on room air. EYES: Lyssa l conjunctivae. Pupils reactive to light. ENT: Normal ears, nose. Hearing intact. Normal teeth. Oropharynx moist. NECK: Trachea midline. No thyromegaly. CHEST: Normal effort. LUNGS: Clear to aus cultation bilaterally. CARDIOVASCULAR: Regular rhythm. No murmur. No lower extremity edema. ABDOME N: Soft. Positive epigastric tenderness. Tenderness to palpation without rebound or guarding. No hepatosplenomegaly. SKIN: Warm, dry, intact. No rash. MUSCULOSKELETAL: No cyanosis or clubbing. Strength 5/5 upper and lower extremities. NEURO: Cranial nerves intact, normal sensation to light t ouch. PSYCH: Alert and oriented x3. Normal mood and affect. Normal judgment and insight, normal m diego. LABORATORY DATA: White count 11.16, hematocrit 49.7, platelets 266, sodium 140, potassium 4.9, chlor nadeem 103, bicarb 25, BUN 14, creatinine 0.7, glucose 121, LFTs negative. Urinalysis is negative. CT scan of the abdomen and pelvis shows a left adrenal mass, 2.5 cm and multiple liver cysts. Medical r ecord review, his last hospitalization here was for his stroke last January. He was discharged on a spirin, Lipitor, Coreg and lisinopril. ASSESSMENT/PLAN: 1. Severe epigastric pain. He has never had any esophagogastroduodenoscopy despite the history desc ribed above including previous episodes of melena, positive H pylori antibody, and a family history o f gastric cancer. The pain is unrelieved in the emergency room. He is now being admitted for pain c ontrol. CT scan of the abdomen and pelvis is negative. 2. I think we need to proceed with EGD. I spoke with Dr. Sanford, will make him n.p.o. after midnight . We will start empirically on a proton pump inhibitor IV. 3. Adrenal mass. I do not think this is contributing to his current pain episode. This should be w orked up as an outpatient. 4. Chronic systolic congestive heart failure. Ejection fraction is known to be only 35%. He does n ot appear to be compliant with his cardiac medications but fortunately he is not acutely decompensate d. 5. Coronary artery disease, status post previous stents, as above. Not on any medications. 6. History of stroke, he should at least be on a baby aspirin if his GI workup is negative. 7. Ventricular tachycardia status post automated implantable cardioverter defibrillator. His EGD maureen l be done with anesthesia assistance given the presence of his defibrillator. CODE STATUS: Full. ADMISSION STATUS: Will admit to observation. Reevaluate tomorrow regarding ongoing need for hospita lization. DVT PROPHYLAXIS: He is low risk and will hold off given procedure planned for tomorrow. /[id number]/MODL
[2017-11-22] MEDS ORDERED: HYDROmorphone HCL 0.5 MG/0.5 ML SYR IVP PRN (18:30)
[2017-11-23 05:43] LABS: PLATELET COUNT 226 10^3/uL (150-400)
[2017-11-23] MEDS: PANTOPRAZOLE SODIUM 40 MG VIAL IVP SCH (10:11)
--- NOTE | 2017-11-23 10:45 | ASMTCMCOM ---
CM Note CM Note Notes: 11/23/2017 Case Management Note Met w/pt to discuss d/c needs. Pt admitted for evaluation of abdominal pain. Abdominal CT completed. There are no therapy evals ordered at this time. Pt lives with his sister Malaika [phone]. Pt is independent in ADL's. Referred to [facility] for supports after discharge. Case Management d/c poc: anticipating independent with follow up as directed. Case Management available if needs change. Date Signed: 11/23/2017 10:45 AM Electronically Signed By:Shabana Tavares RN
[2017-11-23] MEDS ORDERED: LR 1,000 ML IV ONE (11:02)
--- NOTE | 2017-11-23 12:04 | POSTANESTH ---
Post Anesthetic Evaluation Cardiovascular Status: Normal, Stable Respiratory Status: Normal, Stable Level of Consciousness/Mental Status: Can Participate in Eval, Mildly Sleepy, Arousable Pain Control: Adequate, Prn Tx Ordered Nausea/Vomiting Control: Adequate, Prn Tx Ordered Complications Possibly Related to Anesthesia: None Noted
--- NOTE | 2017-11-23 12:08 | PDANEPAE ---
ANE History of Present Illness 62 yo male with epigastric pain for EGD. ANE Past Medical History - Cardiovascular History Hx Hypertension: Yes Hx Arrhythmias: Yes Hx Chest Pain: Yes Hx Coronary Artery / Peripheral Vascular Disease: Yes Cardiovascular History Comment: CHF EF 35% - Pulmonary History Hx COPD: No Hx Asthma/Reactive Airway Disease: No Hx Oxygen in Use at Home: No Hx Sleep Apnea: No Sleep Apnea Screening Result - Last Documented: Negative - Neurologic History Hx Cerebrovascular Accident: Yes Neurologic History Comment: CVA last December, no residual now - Endocrine History Hx Diabetes: No Hypothyroid: No Hyperthyroid: No - Renal History Hx Renal Disorders: No - Liver History Hx Hepatic Disorders: No - Cancer History Hx Cancer: No - Other Health History Other Health History: cervical stenosis on imaging, asymptomatic per pt - Chronic Pain History Chronic Pain: No ANE Review of Systems Review of Systems: - Systems Gastrointestinal: Reports: abdominal pain - Pacemaker Pacemaker Acid Polymerization Operator: COVEGA ANE Patient History - Allergies Allergies/Adverse Reactions: No Known Allergies Allergy (Verified 11/22/17 15:17) - Home Medications Home Medications: NK [No Known Home Meds] 11/22/17 [Last Taken Unknown] - NPO status NPO Since - Liquids (Date): 11/23/17 NPO Since - Liquids (Time): 00:00 NPO Since - Solids (Date): 11/22/17 NPO Since - Solids (Time): 19:00 - Anes Hx Anes Hx: no prior problems - Smoking Hx Smoking Status: Current every day smoker Marijuana use: No - Alcohol Use Alcohol Use: Occasionally (1/month) - Family Anes Hx Family Anes Hx: neg - N/A ANE Labs/Vital Signs - Labs Result Diagrams: 11/23/17 05:10 11/22/17 12:15 - Vital Signs Blood Pressure: 139/78 Heart Rate: 67 Respiratory Rate: 18 O2 Sat (%): 91 Height: 185.42 cm Weight: 74.843 kg ANE Physical Exam - Airway Neck exam: FROM Mallampati Score: Class 3 Mouth exam: normal dental/mouth exam - Pulmonary Pulmonary: clear to auscultation - Cardiovascular Cardiovascular: regular rate and rhythym - ASA Status ASA Status: IV ANE Anesthesia Plan Anesthesia Plan: GA with mask Total IV Anesthesia: Yes
[2017-11-23] MEDS ORDERED: LIDOCAINE 2% 2 ML INJ ONE (12:16)
[2017-11-23] MEDS ORDERED: PROPOFOL 200 MG/20 ML VIAL ONE ×2 (12:16)
[2017-11-23] MEDS ORDERED: ONDANSETRON 4 MG/2 ML VIAL IVP PRN (12:32)
[2017-11-23] MEDS ORDERED: ALBUTEROL 3 ML DEYVIAL IH PRN (12:32)
[2017-11-23] MEDS ORDERED: NALOXONE HCL 0.4 MG/ML INJ IVP PRN (12:32)
--- NOTE | 2017-11-23 12:34 | GIREPORT ---
[facility] Surgical Services - Endoscopy Department Patient Name: Obinna Mariano Procedure Date: 11/23/2017 12:05 PM Patient Type: Inpatient Attending MD/ ER Physician: Doug Perez MD Procedure: Upper GI endoscopy Indications: Epigastric abdominal pain Patient Profile: 62 year old male presents for evaluation of epigastric abdominal pain. Providers: Doug Perez MD Medicines: Monitored Anesthesia Care Complications: No immediate complications. Estimated blood loss: Minimal. Description of Procedure: After obtaining informed consent, the endoscope was passed under direct vision. Throughout the procedure, the patient's blood pressure, pulse, and oxygen saturations were monitored continuously. The was introduced thro ugh the mouth, and advanced to the second part of duodenum. The upper GI endoscopy was accomplished without difficulty. The patient tolerated th e procedure well. Findings: The examined esophagus was normal. A hiatal hernia was present. Patchy mild inflammation was found in the gastric body and in the gastr ic antrum. Biopsies were taken with a cold forceps for histology. One cratered duodenal ulcer with no stigmata of bleeding was found in t he second portion of the duodenum. The lesion was 10 mm in largest dimensi on. Biopsies were taken with a cold forceps for histology. Estimated Blood Loss: Estimated blood loss was minimal. Post Op Diagnosis: - Normal esophagus. - Hiatal hernia. - Gastritis. Biopsied. - One duodenal ulcer with no stigmata of bleeding. Biopsied. - Etiology? Duodenal ulcer. Needs PPI BID. No NSAIDs. Await H. pylori biopsies. Recommendation: Return patient to [facility] for ongoing care. - Advance diet as tolerated. - Await pathology results. - Use a proton pump inhibitor PO BID. - No NSAIDs. - GI will sign off. - Thank you for the consultation! Attending Participation: I personally performed the entire procedure. Doug Perez MD Doug Perez MD 11/23/2017 12:34:12 PM This report has been signed electronicallyDoug Perez MD Number of Addenda: 0 Note Initiated On: 11/23/2017 12:05 PM [email or web address]
--- NOTE | 2017-11-23 12:59 | GCON ---
DATE OF CONSULTATION: 11/23/2017 CONSULTING PHYSICIAN: Kati Olguin MD. REASON FOR CONSULTATION: Epigastric abdominal pain. CHIEF COMPLAINT: Epigastric abdominal pain. HISTORY OF PRESENT ILLNESS: The patient is a 62-year-old male with multiple medical problems, including ventricular tachycardia with a defibrillator, congestive heart failure, coronary artery disease, CVA who presents to [facility] with complaints of abdominal pain. The patient has had complaints of epigastric abdominal pain which started about 9 months ago. He describes the pain as being very sharp and constant. This pain does not radiate. He denies any exacerbating or alleviating factors to the pain. He does not think that eating worsens the pain. He had his first attack approximately 9 months ago and at that time was diagnosed with H pylori. He did not take any of medications for his h. pylori due to cost. At that time, he also had symptoms of melena. He states the pain resolved on its own and 4 months ago had another attack of epigastric pain. He took Prilosec with great relief of his symptoms. He states he was doing well until approximately 3 days ago when he had a recurrence of the pain. He describes the pain as being very sharp and constant. It was approximately 7/10 on admission and is currently 1/10. He denies any melenic stools. He does take a daily aspirin every other day. He denies any chest pain, dsyphagia, nausea, vomiting, shortness of breath or weight loss. I am being asked by Dr. Olguin to evaluate the patient in consultation regarding his epigastric abdominal pain. PAST MEDICAL HISTORY: 1. Ventricular tachycardia with defibrillator. 2. Congestive heart failure. 3. Coronary artery disease. 4. History of stroke. PAST SURGICAL HISTORY: Inguinal hernia. ALLERGIES: NKDA. SOCIAL HISTORY: Smokes on a daily basis. No alcohol. Lives with sister. Father of stomach cancer. MEDICATIONS: Aspirin every other day. FAMILY HISTORY- Father had gastric cancer. REVIEW OF SYSTEMS: A 14-point comprehensive review of systems was asked. Pertinent positives and negatives per HPI. PHYSICAL EXAM: VITALS: Blood pressure 139/78, heart rate 67, respirations 18, temperature 36.9. GENERAL: Awake, alert, oriented x3. No distress. HEENT: Anicteric. Moist mucosa. NECK: No JVD. CARDIOVASCULAR: Regular rate and rhythm, positive S1, S2. Patient had systolic ejection murmur. LUNGS: Clear to auscultation bilaterally. No wheezes, rales or rhonchi. ABDOMEN: Soft, nontender, nondistended. Positive bowel sounds. No guarding. No rebound. EXTREMITIES: No clubbing, cyanosis or edema. NEUROLOGICAL: Cranial nerves 2 through 12 are grossly intact. PSYCH: Normal affect. SKIN: No rash. MUSCULOSKELETAL: No obvious joint deformities. LYMPH: No lymphadenopathy. DATA REVIEWED: Blood work: WBCs 8.9, hemoglobin 15.7, hematocrit 45.6, platelets 226. Sodium 140, potassium 4.9, chloride 103, bicarb 25, BUN 14, creatinine 0.7, AST 20, ALT 17, alk phos 67, lipase 95. CT scan with IV contrast of the abdomen and pelvis: No acute findings. ASSESSMENT AND PLAN: 1. Abdominal pain- epigastric with history of melena approximately 9 months ago. Does take a daily aspirin every other day. CT scan negative. Etiology? Peptic ulcer disease versus other? At this time, recommend to proceed with upper endoscopy to delineate the cause of his symptoms. The risks, benefits, and alternatives of the procedure discussed in great detail with the patient. The risk of infection, bleeding, perforation, sedation were discussed. Due to his cardiac disease with history of ventricular tachycardia with defibrillator and CHF, he is at an increased risk of sedation. Will consult Anesthesiology for support. 2. Ventricular tachycardia with defibrillator. 3. Congestive heart failure significant for coronary artery disease. 4. Cerebrovascular accident. Thank you very much for this consultation. /[id number]/MODL MTDD
--- NOTE | 2017-11-23 14:08 | HOSPPROG ---
Hospitalist Progress Note Assessment/Plan: 62 yo M w epigastric pain, duodenal ulcer w/out bleeding home today on ppi outpt follow up on h pylori see dc summary Subjective: egd w duodenal ulcer Objective: Vital Signs Temp Pulse Resp BP Pulse Ox 36.8 C 59 L 16 130/74 H 87 L 11/23/17 13:07 11/23/17 13:07 11/23/17 13:07 11/23/17 13:07 11/23/17 13:07 Laboratory Results 11/23/17 05:10 11/22/17 11/23/17 11/24/17 05:59 05:59 05:59 Intake Total 2400 1200 Balance 2400 1200 - Physical Exam Constitutional: no apparent distress, appears nourished Eyes: PERRL, anicteric sclera Ears, Nose, Mouth, Throat: moist mucous membranes, hearing normal Cardiovascular: regular rate and rhythym, no murmur, rub, or gallop Respiratory: no respiratory distress, no rales or rhonchi Gastrointestinal: normoactive bowel sounds, soft, non-tender abdomen Genitourinary: No stoddard in urethra Skin: warm, normal color Musculoskeletal: full muscle strength Neurologic: AAOx3 Psychiatric: interacting appropriately ICD10 Worksheet Patient Problems: Problems Problem Status Onset Abdominal pain Acute Expressive aphasia Acute Stroke Acute
[2017-11-23 14:23] VITALS: BP 146/83
--- NOTE | 2017-11-23 15:48 | ASDISCHSUM ---
Discharge Information Plan Status:Home with No Needs Medically Cleared to Leave: Discharge Date: D/C Disposition:Home, Routine, Self-Care ADT D/C Disposition: Projected Discharge Date: Transportation at D/C: Discharge Delay Reason: Follow-Up Date: Discharge Slot: Final Diagnosis: Placement Information Patient Contact Information Contact Name:BRANDEEMARIA ANTONIAMARY Relationship:Son Address:[address] Work Phone: City:[place] [facility] Phone: State/Zip Code:[place] [address] Email: Financial Information Financial Class:Medicaid Primary Plan Desc:MEDICAID HEALTH FIRST PUBLIC HEALTH OFFICER Primary Plan Number:[id number] Secondary Plan Desc: Secondary Plan Number: Assessment Information LACE LACE Length of stay for Answers: 1 day current admission Acuity / Level of Answers: No Care: Did the patient have an inpatient admission? Comorbidities - select Answers: Coronary Artery Disease all that apply Previous myocardial infarction # of Emergency department Answers: 1-2 visits in the last 6 months Score: 5 Date Signed: 11/23/2017 03:47 PM Electronically Signed By:Shabana Tavares RN [facility] CM Progress Note CM Note CM Note Notes: 11/23/2017 Case Management Note Met w/pt to discuss d/c needs. Pt admitted for evaluation of abdominal pain. Abdominal CT completed. There are no therapy evals ordered at this time. Pt lives with his sister Malaika [phone]. Pt is independent in ADL's. Referred to [facility] for supports after discharge. Case Management d/c poc: anticipating independent with follow up as directed. Case Management available if needs change. Date Signed: 11/23/2017 10:45 AM Electronically Signed By:Shabana Tavares RN Intervention Information
--- NOTE | 2017-11-23 18:45 | GDS ---
DISCHARGE DIAGNOSES: 1. Epigastric pain. 2. Duodenal ulcer without bleeding. 3. History of ventricular tachycardia with automated implantable cardioverter-defibrillator. Please see admission history and physical by Dr. Joana Olguin. Patient presented with abdominal pa in. It has been going on for weeks to months. He was not anemic. He did not have melena. He denie d fever or chills. He had a CT that was unremarkable. He underwent EGD showing duodenal ulcer and g astritis. This was biopsied. He has a history of possible H pylori, although he has not been treate d. Those tests are pending at this time. Patient is discharged home on a b.i.d. PPI. He will follow up with me regarding his H pylori results . He will get a followup CT for his adrenal mass in a couple months and I discussed this with him. /[id number]/MODL
== END 2017-11-23 16:10 | disposition home or self-care (01) ==
LOC: F3E 15:42
PROVIDERS: ADMIT Internal Medicine; ATTEND Internal Medicine
PROC: 0DB98ZX Excision of Duodenum, Via Natural or Artificial Opening Endoscopic, Diagnostic (ICD-10-PCS; principal; 2017-11-22)
PROC: 0DB68ZX Excision of Stomach, Via Natural or Artificial Opening Endoscopic, Diagnostic (ICD-10-PCS; principal; 2017-11-22)
DX: K26.9 Duodenal ulcer, unspecified as acute or chronic, without hemorrhage or perforation (principal); K29.70 Gastritis, unspecified, without bleeding; Z95.810 Presence of automatic (implantable) cardiac defibrillator; Z72.0 Tobacco use; I50.22 Chronic systolic (congestive) heart failure; I25.10 Atherosclerotic heart disease of native coronary artery without angina pectoris; Z86.73 Personal history of transient ischemic attack (TIA), and cerebral infarction without residual deficits
CPT/HCPCS: 43235; 74177; 96374; 96375; 99285; G0378; J1170; J2405; J2704; J3010; Q9967